=== PATIENT | female | born 1940 | race Caucasian/White ===

== ENCOUNTER 2017-05-11 10:50 | Observation (INO) | payer MEDICARE ==
[~2017-05-11] VITALS: Ht 165.1 cm; Wt 90.6 kg
[2017-05-11] MEDS ORDERED: NS 500 ML IV ONE (11:00)
[2017-05-11] MEDS ORDERED: ASPI1TAB PO (11:29)
[2017-05-11] MEDS ORDERED: ASCO25TA PO (11:29)
[2017-05-11] MEDS ORDERED: CARV6.25 PO (11:29)
[2017-05-11] MEDS ORDERED: LISI40TAB PO (11:29)
[2017-05-11] MEDS ORDERED: CALC600T57 PO (11:29)
[2017-05-11] MEDS ORDERED: FIBE625T PO (11:29)
[2017-05-11] MEDS ORDERED: PRAV10TA4 PO (11:29)
[2017-05-11] MEDS ORDERED: NOVO1INJ4 SC (11:29)
[2017-05-11] MEDS ORDERED: GABA-283 PO (11:29)
[2017-05-11] MEDS ORDERED: GEMF600T PO (11:29)
[2017-05-11] MEDS ORDERED: PANT40TA2 PO (11:29)
[2017-05-11 11:30] LABS: ADD MANUAL DIFFER YES; DIFF SLIDE NUMBER 194; MEAN CORPUSCULAR HGB CONC 28.5 g/dl (32.0-36.5); MEAN CORPUSCULAR VOLUME 70.3 fl (80.0-96.0); PLATELET COUNT, AUTOMATED 173 k/mm3 (150-450); RED CELL DISTRIBUTION WIDTH 15.6 % (11.5-14.5); WHITE BLOOD COUNT 3.8 K/mm3 (4.0-10.0)
[2017-05-11 11:33] LABS: INR 1.16
[2017-05-11 11:42] LABS: ALBUMIN 2.3 GM/DL (3.2-5.2); ALBUMIN/GLOBULIN RATIO 0.85 (1.00-1.93); ALKALINE PHOSPHATASE 65 U/L (45-117); ALT/SGPT 7 U/L (12-78); ANION GAP 11 MEQ/L (8-16); AST/SGOT 5 U/L (15-37); BILIRUBIN,DIRECT < 0.1 MG/DL (0.0-0.2); BILIRUBIN,TOTAL 0.3 MG/DL (0.2-1.0); BLOOD UREA NITROGEN 45 MG/DL (7-18); CALCIUM LEVEL 6.2 MG/DL (8.8-10.2); CARBON DIOXIDE LEVEL 20 MEQ/L (21-32); CHLORIDE LEVEL 109 MEQ/L (98-107); CREATININE FOR GFR 1.52 MG/DL (0.55-1.02); GLOMERULAR FILTRATION RATE 35.5 (>39); GLUCOSE, FASTING 303 MG/DL (83-110); POTASSIUM SERUM 3.2 MEQ/L (3.5-5.1); SODIUM LEVEL 140 MEQ/L (136-145)
--- NOTE | 2017-05-11 11:52 | REP ---
Clinical: Hypertension . Comparison: None . Findings: The mediastinum and cardiac silhouette are stable and within normal limits for portable technique. The lung rashid are clear without acute consolidation, effusion, or pneumothorax. Skeletal structures are intact. Impression: No acute cardiopulmonary process appreciated. Signed by Marcelo Van MD 05/11/2017 11:45 A
[2017-05-11] MEDS ORDERED: NS 1,000 ML IV ONE (12:00)
[2017-05-11 12:03] LABS: ANISOCYTOSIS 2+; BANDS 1 % (< 11); BASOPHILS 1 % (0-4); EOSINOPHILS 2 % (0-5); HYPOCHROMASIA 2+; MICROCYTOSIS 2+
[2017-05-11 12:25] LABS: PERCENT SATURATION 5.5 % (13.2-37.4)
[2017-05-11] MEDS ORDERED: NS 1,000 ML IV SCH (12:42)
[2017-05-11] MEDS ORDERED: ONDANSETRON 4MG/2ML VIAL (J2405) IV PRN (12:45)
[2017-05-11] MEDS ORDERED: NEUR800T PO (12:56)
[2017-05-11] MEDS ORDERED: ASCO500T PO (12:57)
[2017-05-11] MEDS ORDERED: ACTO45TA12 PO (13:03)
[2017-05-11] MEDS ORDERED: DEXTROSE 50% 50 ML SYRINGE IV PRN (14:00)
[2017-05-11] MEDS ORDERED: GLUCAGON FOR INJ 1 MG VIAL (J1610) SC PRN (14:00)
[2017-05-11] MEDS ORDERED: GLUCOSE 4 GM CHEW TABLET PO PRN (14:00)
[2017-05-11] MEDS ORDERED: POTASSIUM CHLORIDE 10 MEQ SR TABLET PO ONE (14:00)
[2017-05-11] MEDS ORDERED: MAGNESIUM OXIDE 400 MG TAB (MAG-OX) PO ONE (14:00)
[2017-05-11 14:17] LABS: REASON FOR REVIEW ANEMIA / RBC MORPH
--- NOTE | 2017-05-11 14:45 | HPE ---
DATE OF ADMISSION: 05/11/2017 CHIEF COMPLAINT: This is a 77-year-old female presenting complaining of near syncopal episode in the bathroom and noted to have anemia. HISTORY OF PRESENT ILLNESS: This is a 77-year-old female with a significant past medical history of peripheral vascular disease, who was recently evaluated for anemia and weakness in [place] in January of this year with comorbidities of hypertension, hyperlipidemia, diabetes, gastroesophageal reflux disease (GERD), who presented complaining of near syncope today in the bathroom. The patient and her family mentioned that the patient was recently in [place] and was evaluated for acute dizziness and weakness and was found to have a hemoglobin level of 6.3 , accompanied by melena and therefore the patient had a red blood cell transfusion and GI consultation, status post esophagogastroduodenoscopy (EGD). 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 She also had a colonoscopy, but it was suboptimal due to questionable inadequate prep versus tortuous colon. Therefore , Gastrografin enema was done, which showed extensive diverticulosis and was monitored for hemoglobin, which did not drop and therefore was discharged. The patient was sent home with Protonix. The patient states that she has been well up until 1 week ago where she continued to feel dizzy but denies any melena, red blood cell in her stool, diarrhea with blood or hematemesis, hematuria, or hemoptysis. The patient had no blood exsanguinating from any orifice that she is aware of. This has been verified by her family member as well. The patient also denies any sick contacts or fevers at home. The patient did followup with her primary care provider, but at this time did not have any referral for any sub specialist to followup with. The patient did not have any precipitating factors, such as chest pain, shortness of breath, but did have some dizziness and nausea associated with her symptoms. She felt like she was going to pass out prior to coming to the emergency room. The patient states that she also has some neck pain associated with not feeling well, but those symptoms, including the nausea and neck pain and feeling of passing out has all resolved at this point. The patient denies any prodromal illness, such as fevers, chills, cough, sputum production, abdominal pain, diarrhea, dysuria. REVIEW OF SYSTEMS: Ten point review of systems is negative other than those described in the history of present illness. PAST MEDICAL HISTORY: Significant for: 1. Peripheral vascular disease. 2. Hypertension. 3. Hyperlipidemia. 4. Diabetes. 5. Gastroesophageal reflux disease (GERD). 6. Neuropathy. SURGICAL HISTORY: Includes: 1. Cholecystectomy. 2. Leg stent. 3. Hysterectomy. 4. Back surgery. SOCIAL HISTORY: The patient denies smoking, drinking or drug abuse. FAMILY MEDICAL HISTORY: Significant for father with hemorrhagic stroke. Mother with diabetes and congestive heart failure (CHF). Sister who of lung cancer, but she was a smoker. Brother who of cancer, does not know what kind as it was mainly metastasized all over the body. As far as she knows was not colon in origin. ALLERGIES: She has no known drug allergies. Medications from home have not been verified, but preliminary list is: - ascorbic acid 500 mg by mouth daily - aspirin 81 mg by mouth at night - calcium polycarbophil 625 mg by mouth - carvedilol 6.25 mg by mouth twice a day - gabapentin 800 mg by mouth three times a day - gemfibrozil 600 mg by mouth twice a day - insulin 70/30 70 units subcutaneous twice a day - Lisinopril 40 mg by mouth daily - pantoprazole 40 mg by mouth daily - pravastatin 80 mg at night - calcium plus vitamin D3 600-200 units one tablet once a day - Actos 45 mg by mouth daily PHYSICAL EXAMINATION: VITAL SIGNS: Initially were temperature 95.9, heart rate of 81, respiratory rate of 18, blood pressure is 113/55, saturating 97% on room air. There was a history that the patient has been hypotensive, which her last blood pressure was 83/57. There seems to be no acute bleeding that might have contributed to this. The patient is supposed to be receiving red blood cell in the emergency room. HEENT: Normocephalic. No trauma. Inspection of the eyes, nose and throat normal. Pupils equal, round, and reactive to light and accommodation. Mucosa is moist. Neck is supple. No tracheal deviation. CARDIAC: S1, S2. Regular rate and rhythm. Pulses present. LUNGS: Equal air entry. Did not have any wheezes, rales or rhonchi. ABDOMEN: Soft, nontender. Bowel sounds present. EXTREMITIES: No significant pitting edema. Capillary refill is present in all four extremities. Skin is intact and warm to touch, afebrile. The patient seems pale. No acute bleeding noted on my examination. The patient is currently awake, alert, oriented times three. Cranial nerves grossly intact. Motor and sensory is intact. Normal mood and affect for current situation. Does not seem to be in distress, even with the blood pressure last noted at 11 it is 83/57 but on my examination her last blood pressure is 153/69. Family at the bedside. DIAGNOSTIC STUDIES: The patient had WBC of 3.8, hemoglobin and hematocrit is 5.7 and 20. Platelet count is normal. Complete metabolic profile is normal except potassium 3.2, chloride 109, carbon dioxide 20, BUN of 45, creatinine 1.52, glucose is 303, calcium 6.2, AST 5, ALT 7, total protein is 5, albumin is 2.3. Otherwise, her complete metabolic profile is normal. Her iron study showed the iron is 19, TIBC is 344, transferrin percentage is 5.5, ferritin is 5. Coagulation studies normal except for PT of 15. The patient had a chest x-ray and as per radiology showed no acute cardiopulmonary process. ASSESSMENT AND PLAN: This is a 77-year-old female with significant past medical history of recent hospitalization in January in [place] due to dizziness and weakness with anemia and melena. Had red blood cell transfusion, along with gastrointestinal consultation, status post EGD and colonoscopy resulting in Mehta's esophagus and inadequate colonoscopy prep with tortuous colon and therefore had Gastrografin enema, which showed an extensive diverticulosis and was discharged with Protonix. She does have comorbidities of diabetes, hypertension, gastroesophageal reflux disease (GERD), peripheral vascular disease and neuropathy who is presenting complaining of near syncopal episode, along with one week of weakness, dizziness, but no blood loss history. 1. Near syncopal episode, most likely secondary to symptomatic anemia. Suspect iron deficiency at this time. We will further evaluate with telemetry, serial cardiac enzymes, echocardiogram and the patient is to receive red blood cell transfusion and to be continued from that was started from the emergency room. The patient does seem to have iron deficiency. Therefore, we will supplement with iron. Hold aspirin for now. Obtain occult stool, along with obtaining TSH , T4 level and vitamin B12 and folate level, along with peripheral smear for further evaluation. The patient, depending on the occult stool, may need a gastrointestinal consultation, but the patient did have an EGD and colonoscopy in [place], resulting in Mehta's esophagus, along with inadequate colonoscopy due to inadequate prepping and tortuous colon. Depending on the peripheral smear and laboratory studies, the patient may need oncology consultation. We will defer subspecialist consultation pending on initial investigation. We will defer consultation to the on-coming team. 2. Hypokalemia. We will replace and monitor. Obtain magnesium level. 3. Renal insufficiency. It seems that the patient did have slight elevated renal dysfunction in [place] as well. We will provide judicious IV fluid and continue to monitor and treat problem #1, as mentioned above. 4. Pharmacy to verify home medications. In the interim, once verified, we will resume her home medication for hypertension, including carvedilol but hold Lisinopril for now. 4. Hyperlipidemia. Resume statin and gemfibrozil. 5. Diabetes. Fingerstick monitoring. Resume NPH 70/30 but hold Actos for now. 6. Gastroesophageal reflux disease (GERD). IV Protonix. 7. Peripheral vascular. We will hold aspirin right now. 8. Neuropathy. Gabapentin. 9. Deep vein thrombosis (DVT) prophylaxis . Sequential compression device (SCD). MTDD
[2017-05-11 15:58] LABS: FOLATE 18.3 NG/ML
[2017-05-11 16:05] VITALS: BP 132/64
[2017-05-11] MEDS ORDERED: HumaLOG INSULIN (NovoLOG) PER UNIT SC SCH ×2 (17:30→21:00)
[2017-05-11] MEDS: GEMFIBROZIL 600 MG TAB PO SCH (17:35)
[2017-05-11] MEDS: GABAPENTIN 400 MG CAP PO SCH ×2 (17:35→21:17)
[2017-05-11 19:56] VITALS: BP 141/72
--- NOTE | 2017-05-11 20:57 | ECGEPIP ---
Stationary ECG Study [facility] - ED Test Date: 2017-05-11 Pat Name: LETTY LEOS Department: Room: - Gender: F Presetter Operator: tk : [id number] Requested By: Emilio Corbin Order Number: [id number] Reading MD: Lisa Frederick Measurements Intervals [place] Rate: 80 P: 62 OR: 168 QRS: 55 QRSD: 84 T: 70 QT: 377 QTc: 436 Interpretive Statements SINUS RHYTHM LOW VOLTAGE LIMB NO PRIOR FOR COMPARISON Electronically Signed On 05-11-2017 20:57:18 EDT by Lisa Frederick
[2017-05-11] MEDS ORDERED: HumuLIN (NovoLIN)70/30 INSULIN INJ PER UNIT SC SCH (21:00)
[2017-05-11] MEDS ORDERED: PRAVASTATIN 20 MG TAB PO SCH (21:00)
[2017-05-11] MEDS: FERROUS SULFATE 325MG TAB PO SCH (21:17)
[2017-05-11] MEDS: CARVedilol 6.25 MG TAB PO SCH (21:22)
[2017-05-12] VITALS (11 sets, daily range): BP systolic 107–140; BP diastolic 54–62
[2017-05-12 05:26] LABS: MEAN CORPUSCULAR HEMOGLOBIN 23.3 pg (27.0-33.0); MEAN CORPUSCULAR HGB CONC 31.9 g/dl (32.0-36.5); PLATELET COUNT, AUTOMATED 255 k/mm3 (150-450); RED CELL DISTRIBUTION WIDTH 17.6 % (11.5-14.5); WHITE BLOOD COUNT 6.9 K/mm3 (4.0-10.0)
[2017-05-12 05:42] LABS: ANION GAP 9 MEQ/L (8-16); BLOOD UREA NITROGEN 43 MG/DL (7-18); CALCIUM LEVEL 8.6 MG/DL (8.8-10.2); CARBON DIOXIDE LEVEL 24 MEQ/L (21-32); CHLORIDE LEVEL 106 MEQ/L (98-107); CREATININE FOR GFR 1.52 MG/DL (0.55-1.02); FREE T4 0.87 NG/DL (0.76-1.46); GLOMERULAR FILTRATION RATE 35.5 (>39); GLUCOSE, FASTING 59 MG/DL (83-110); MAGNESIUM LEVEL 1.9 MG/DL (1.8-2.4); POTASSIUM SERUM 4.3 MEQ/L (3.5-5.1); SODIUM LEVEL 139 MEQ/L (136-145)
[2017-05-12] MEDS ORDERED: HumaLOG INSULIN (NovoLOG) PER UNIT SC SCH ×3 (06:00→21:00)
[2017-05-12 07:39] LABS: REASON FOR REVIEW OTHER
[2017-05-12 08:09] LABS: RETICULOCYTE % 1.85 % (0.5-1.5)
[2017-05-12 08:10] LABS: RETIC HEMOGLOBIN CONTENT CHr 24.2 PG (24-36); RETICULOCYTE ABSOLUTE ADVIA212 76 x10(9)/L (17-77)
[2017-05-12] MEDS ORDERED: PANTOPRAZOLE 40MG INJ (PROTONIX) (C9113) IV SCH ×2 (09:00)
[2017-05-12] MEDS ORDERED: HumuLIN (NovoLIN)70/30 INSULIN INJ PER UNIT SC SCH (09:00)
[2017-05-12] MEDS ORDERED: ASCORBIC ACID 500 MG TAB PO SCH (09:00)
[2017-05-12] MEDS: FERROUS SULFATE 325MG TAB PO SCH (09:51)
[2017-05-12] MEDS: GABAPENTIN 400 MG CAP PO SCH ×2 (09:51→15:20)
[2017-05-12] MEDS: GEMFIBROZIL 600 MG TAB PO SCH (09:52)
[2017-05-12] MEDS: CARVedilol 6.25 MG TAB PO SCH (09:55)
--- NOTE | 2017-05-12 11:51 | DS.PDOC ---
Discharge Summary General Date of Admission May 11, 2017 at 13:38 Date of Discharge May 12, 2017 Discharge Summary PRIMARY CARE PHYSICIAN: Dr. Leandro Sin in [place], [place] ATTENDING AT TIME OF DISCHARGE: Dr. Patience Wu DISCHARGE DIAGNOS(E)S: 1. Near syncopal episode 2. Symptomatic anemia 3. Hypokalemia 4. Hypomagnesemia 5. Renal insufficiency 6. Hyperlipidemia 7. Diabetes mellitus type 2 8. GERD 9. Peripheral vascular disease HPI & HOSPITAL COURSE: Ms. Penn is a 77-year-old female who apparently had been hospitalized in January 2017 in [place] for symptomatic anemia and was discovered to have a hemoglobin level of 6.3 at that time, it was also accompanied by melena at that time as well. She was treated with PRBC transfusion, EGD revealed Mehta's esophagus, and she had a colonoscopy performed but was suboptimal due to questionable inadequate prep versus tortuous colon. A Gastrografin enema was done which showed extensive diverticulosis. Serial H&H's were stable throughout that hospitalization, therefore she was discharged at that time. She reports that she follow-up with her primary care provider, but was never referred to any additional specialists for further workup regarding her anemia. She is up here in [place] on vacation for a family reunion, and was noted to have a presyncopal episode, therefore she was brought into the emergency department by her family, hemoglobin/hematocrit was found to be 5.7/20.0 on admission, she was treated with 2 units of packed red blood cells and she had improved to 9.5/29.7 by morning, and then it was rechecked again today at noon and was found to be 10.3/32.1. Stool for occult blood was positive, which the patient found quite surprising if she states that ever since January she has been diligently taking her stools, and she has never had any additional black or tarry stools since her last hospitalization. She was informed that she would likely need to have a colonoscopy to evaluate for the etiology of her bleeding, and when this was mentioned she replied "they put me through hell last time, I will never do that again". Throughout the day yesterday, last night, and this morning her blood pressures have been stable, orthostatic vital signs were checked and were found to be negative. She reports feeling significantly better, and has been able to get up and walk about the room as well as go to the bathroom without any lightheadedness, dizziness, unsteadiness, or fatigue. Once again she denies noticing any blood in her stools. She was quite desirous to be discharged today as she is only in [place] to attend a family reunion which is occurring tonight. She states that she'll return back to [place] in 8 days. The case was discussed with the general surgeon on-call who recommended that she be informed that she should pursue further diagnostic testing to determine the etiology of her anemia. There is a high likelihood that she may have colon cancer that was not discovered during her last colonoscopy because they were unable to fully visualize the colon. There is also the possibility that she may have a bone marrow disorder causing her anemia as well which is also not been investigated fully. Also, if her primary care provider and other specialists are all in [place], and she will be returning to [place] in 8 days, we really do not have sufficient time to be able to do a full and appropriate workup for her here in [place], especially she is refusing colonoscopy at this time. The patient was informed of the severity of her condition, and the possibilities of the etiology of her bleeding given our limited information at this time. She was informed that given the severity of her anemia she does run a very high risk of having an acute cardiac event, and that this would be the most likely immediate cause for if she does not find an etiology of her anemia and have it addressed. Given the fact that she has not had any interventions in the past 4 months, and that she was able to tolerate a hemoglobin of 5.7, and that she has negative orthostatic vital signs, and that she has had stable vitals for the past 24 hours with no evidence of bleeding other than a positive stool guaiac, as well as a stable H&H, we will discharge her at this time to go enjoy her family vacation with a few stipulations. She agreed that she would return back to the emergency department or urgent care within 2-3 days (Sunday or Sunday) to have her H&H checked once again to make sure that she is not dropping. She also agreed to establish a visit with her primary care provider in [place] within 7 days of her arrival home (she states that she will fly home on 05/20/2017), and pursue further diagnostic evaluation regarding the etiology of her anemia. She also agrees that she will remain under the close supervision of her family and she will return immediately to the emergency department if she experiences any additional fatigue, presyncopal episodes, melena, or any other symptomatology that seems out of the ordinary for her. PHYSICAL EXAMINATION ON DISCHARGE: GENERAL: Awake, alert, and oriented 3. She is an excellent historian. She appears to be in no acute distress. CARDIOVASCULAR EXAMINATION: Regular rate and rhythm, with no rubs, gallops, or murmur. RESPIRATORY EXAMINATION: Clear to auscultation bilaterally with no wheezes, rales, or rhonchi. ABDOMINAL EXAMINATION: Soft, nontender, nondistended. Bowel sounds present. EXTREMITIES: No clubbing or edema noted. 2+ pulses in the radial bilaterally. DISPOSITION: Home DISCHARGE INSTRUCTIONS: Follow-up in emergency department or urgent care within 2-3 days for repeat H&H , and if this is lower than 8.5, she should return to the hospital for further evaluation. She needs to follow-up with her primary care provider within 7 days of returning home on 05/20/2017. Diet: Consistent carbohydrates. Activity : As tolerated, I recommend avoidance of exertional activities until further evaluation can be obtained. If symptoms return, or if you experience worsening of your symptoms, please return to the emergency department. My preceptor for this patient encounter was physically present in the building during the encounter and was fully available. As needed, all aspects of the patient interview, examination, medical decision making process, and medical care plan development were reviewed and approved by the preceptor. Preceptor is aware and concurs with the plan as stated in the body of this note and will attest to such by his/her cosignature. Vital Signs/I&Os Vital Signs Date Time Temp Pulse Resp B/P (MAP) Pulse Ox O2 Delivery O2 Flow Rate FiO2 05/12/17 09:59 74 129/60 (83) 05/12/17 08:00 99.3 18 93 Room Air I&O- Last 24 Hours up to 6 AM 05/12/17 06:00 Intake Total 3445 ml Output Total 1950 ml Balance 1495 ml Laboratory Data Labs 24H Laboratory Tests 2 05/11/17 13:59: Magnesium Level 1.6L 05/11/17 17:03: Bedside Glucose (Misc Panel) 272H 05/11/17 20:07: Bedside Glucose (Misc Panel) 217H 05/11/17 21:08: Total Creatine Kinase 47, Creatine Kinase MB 1.7, Creatine Kinase MB Relative Index 3.61, Troponin I < 0.02 05/12/17 04:07: Urine Appearance CLEAR, Urine Color STRAW, Urine pH 5.0, Urine Specific [place] 1.006, Urine Protein NEGATIVE, Urine Glucose (UA) NEGATIVE, Urine Ketones NEGATIVE, Urine Urobilinogen 0.2, Urine Bilirubin NEGATIVE, Urine Leukocyte Esterase NEGATIVE, Urine Blood NEGATIVE, Urine Nitrite NEGATIVE, Urine WBC (Auto ) 5H, Urine RBC (Auto) 2, Urine Hyaline Casts (Auto) 0, Urine Bacteria (Auto) NEGATIVE, Urine Squamous Epithelial Cells 0, Urine Sperm (Auto) 05/12/17 05:04: Differential Slide Review Report, Differential Pathologist's Review OTHER, Peripheral Blood Smear Path Consult PERIPHERAL SMEAR, Absolute Reticulocyte Count 76, Percent Reticulocyte Count 1.85H, Reticulocyte Hgb Content (CHr) 24.2 , Anion Gap 9, Glomerular Filtration Rate 35.5L, Blood Urea Nitrogen 43H, Creatinine 1.52H, Sodium Level 139, Potassium Level 4.3#, Chloride Level 106, Carbon Dioxide Level 24, Calcium Level 8.6#L, Total Creatine Kinase 34, Magnesium Level 1.9, Creatine Kinase MB 1.0, Creatine Kinase MB Relative Index 2.94, Troponin I < 0.02, Thyroid Stimulating Hormone (TSH) 0.539, Free Thyroxine 0.87 05/12/17 06:32: Bedside Glucose (Misc Panel) 116H 05/12/17 09:49: Bedside Glucose (Misc Panel) 78L 05/12/17 11:19: Bedside Glucose (Misc Panel) 88 CBC/BMP Laboratory Tests Item Value Date Time White Blood Count 6.9 K/mm3 05/12/17 0504 Red Blood Count 4.07 M/mm3 05/12/17 0504 Hemoglobin 9.5 g/dl L # 05/12/17 0504 Hematocrit 29.7 % L 05/12/17 0504 Mean Corpuscular Volume 73.0 fl L 05/12/17 0504 Mean Corpuscular Hemoglobin 23.3 pg L 05/12/17 0504 Mean Corpuscular Hemoglobin Concent 31.9 g/dl L 05/12/17 0504 Red Cell Distribution Width 17.6 % H 05/12/17 0504 Platelet Count 255 k/mm3 05/12/17 0504 Hemoglobin 10.3 g/dl L 05/12/17 1153 Hematocrit 32.1 % L 05/12/17 1153 Sodium Level 139 MEQ/L 05/12/17 0504 Potassium Level 4.3 MEQ/L # 05/12/17 0504 Chloride Level 106 MEQ/L 05/12/17 0504 Carbon Dioxide Level 24 MEQ/L 05/12/17 0504 Anion Gap 9 MEQ/L 05/12/17 0504 Blood Urea Nitrogen 43 MG/DL H 05/12/17 0504 Creatinine 1.52 MG/DL H 05/12/17 0504 Glomerular Filtration Rate 35.5 L 05/12/17 0504 Fasting Glucose 59 MG/DL L 05/12/17 0504 Calcium Level 8.6 MG/DL L # 05/12/17 0504 Magnesium Level 1.9 MG/DL 05/12/17 0504 Total Creatine Kinase 34 U/L 05/12/17 0504 Creatine Kinase MB 1.0 NG/ML 05/12/17 0504 Creatine Kinase MB Relative Index 2.94 05/12/17 0504 Troponin I < 0.02 NG/ML 05/12/17 0504 Thyroid Stimulating Hormone (TSH) 0.539 uIU/ML 05/12/17 0504 Free Thyroxine 0.87 NG/DL 05/12/17 0504 FSBS Laboratory Tests Test 05/11/17 17:03 05/11/17 20:07 05/12/17 06:32 05/12/17 09:49 Range/Units Bedside Glucose (Misc Panel) 272 217 116 78 83-110 MG/DL Test 05/12/17 11:19 Range/Units Bedside Glucose (Misc Panel) 88 83-110 MG/DL Microbiology Microbiology 05/11/17 Stool Occult Blood ([facility]) - Final, Complete Discharge Medications Scheduled (Calcium + D3 600-200 mg-Unit) 1 Tab Tab, 1 TAB PO DAILY, (Reported) Ascorbic Acid (Ascorbic Acid) 500 Mg Tab, 500 MG PO DAILY, (Reported) Calcium Polycarbophil (Fibercon) 625 Mg Tab, 625 MG PO Q2D, (Reported) Carvedilol (Carvedilol) 6.25 Mg Tab, 6.25 MG PO BID, (Reported) Ferrous Sulfate (Ferrous Sulfate) 325 Mg Tab, 325 MG PO BID Gabapentin (Neurontin) 800 Mg Tab, 800 MG PO TID, (Reported) Gemfibrozil (Gemfibrozil) 600 Mg Tab, 600 MG PO BID, (Reported) Insulin Human Isophan/Regular (Novolin 70/30 (70-30) 100 Unit/ml) 1 Inj Inj, 70 UNITS SC BID, (Reported) Lisinopril (Lisinopril) 40 Mg Tab, 40 MG PO DAILY, (Reported) Pantoprazole Sodium (Pantoprazole Sodium) 40 Mg Tab, 40 MG PO DAILY, (Reported) Pravastatin Sod (Pravastatin Sodium) 10 Mg Tab, 80 MG PO QHS, (Reported) Allergies Coded Allergies: No Known Allergies (Unverified , 05/11/17) GME ATTESTATION GME ATTESTATION My preceptor for this patient encounter was physically present in the building during the encounter and was fully available. As needed, all aspects of the patient interview, examination, medical decision making process, and medical care plan development were reviewed and approved by the preceptor. Preceptor is aware and concurs with the plan as stated in the body of this note and will attest to such by his/her cosignature. ATTENDING NOTE Need immediate followup for malignancy workup with gastroenterology. Patient refused colonoscope insisted on leaving for followup at her home state. I have both independently examined this patient as well as reviewed the note. I have discussed in detail with the resident the findings and plan of treatment as documented in the residents note. I will continue to follow the patient and offer further guidance to the patients care as necessary during this hospital stay. PRISCILLA Lockwood MD, DO May 12, 2017 11:51 PATIENCE WU MD May 13, 2017 06:52
[2017-05-12] MEDS ORDERED: FERR1TAB8 PO (15:10)
== END 2017-05-12 15:26 | disposition home or self-care (01) ==
LOC: M ED 10:50 → EDBD 10:50 → M ED INP 13:38 → M PCU 15:50
PROVIDERS: ADMIT Internal Medicine; ATTEND Hospitalist
DX: R55 Syncope and collapse (principal); D64.9 Anemia, unspecified; E87.6 Hypokalemia; E83.42 Hypomagnesemia; N28.9 Disorder of kidney and ureter, unspecified; E78.5 Hyperlipidemia, unspecified; E11.9 Type 2 diabetes mellitus without complications; K21.9 Gastro-esophageal reflux disease without esophagitis; I73.9 Peripheral vascular disease, unspecified; I10 Essential (primary) hypertension; K22.70 Barrett's esophagus without dysplasia; K57.90 Diverticulosis of intestine, part unspecified, without perforation or abscess without bleeding; G62.9 Polyneuropathy, unspecified; R53.1 Weakness; Z79.899 Other long term (current) drug therapy; Z79.4 Long term (current) use of insulin; Z79.82 Long term (current) use of aspirin
CPT/HCPCS: 36415; 36430; 71010; 80048; 80076; 81001; 82270; 82550; 82553; 82607; 82728; 82746; 83550; 83735; 84439; 84443; 84484; 85014; 85018; 85025; 85027; 85046; 85610; 85730; 86850; 86900; 86901; 86920; 93005; 93041; 94760; 96374; 99285; C9113; G0378; P9016

== ENCOUNTER → 2017-05-15 | Outpatient (CLI) | payer MEDICARE ==
[~2017-05-15] MED LIST: ACTO45TA12 PO; ASCO25TA PO; ASCO500T PO; ASPI1TAB PO; CALC600T57 PO; CARV6.25 PO; FERR1TAB8 PO; FIBE625T PO; GABA-283 PO; GEMF600T PO; LISI40TAB PO; NEUR800T PO; NOVO1INJ4 SC; PANT40TA2 PO; PRAV10TA4 PO
== END ==
LOC: M LAB 12:04
PROVIDERS: ATTEND Internal Medicine
DX: D55.1 Anemia due to other disorders of glutathione metabolism (principal)